=== PATIENT | male | born 1975 | race Asian ===

== ENCOUNTER 2020-03-08 11:48 | Outpatient (REF) | payer OTHER, SELFPAY | END 2020-03-08 11:49 | disposition home or self-care (01) | LOC: HO.LAB 11:48 | PROVIDERS: Visit Provider Internal Medicine | DX: Z20.828 Contact with and (suspected) exposure to other viral communicable diseases (principal) | CPT/HCPCS: C9803; U0003 ==

== ENCOUNTER 2020-03-31 15:35 | Outpatient (REF) | payer OTHER, SELFPAY | END 2020-03-31 15:36 | disposition home or self-care (01) | LOC: HO.LAB 15:35 | PROVIDERS: Visit Provider Internal Medicine | DX: Z20.828 Contact with and (suspected) exposure to other viral communicable diseases (principal) | CPT/HCPCS: C9803; U0003 ==